=== PATIENT | female | born 1975 | race Caucasian/White ===

== ENCOUNTER 2016-12-10 10:04 | Emergency (ER) | payer BC, OTHER ==
[~2016-12-10] VITALS: Ht 165.1 cm; Wt 74.8 kg
--- NOTE | ~2016-12-10 | EKG ---
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
[~2016-12-10 10:04] MED LIST: METOCLOPRAMIDE10 MG PO; NORCO 5-325 TA1 EACH PO; ONDANSETRON HCL4 M2 PO; PRENATAL PO; SYNTHROID112 MCG PO; TYLENOL EX-STR500 M2; ZANTAC 150MG T150 M1 PO
[2016-12-10] MEDS ORDERED: WELLBUTRIN XL300 MG PO (10:12)
[2016-12-10] MEDS ORDERED: LEVOTHYROXIN0.125 M1 PO (10:12)
[2016-12-10] MEDS ORDERED: ZOLOFT50 MG PO (10:13)
[2016-12-10] MEDS ORDERED: VITAMIN D1000 UNI1 PO (10:13)
[2016-12-10] MEDS ORDERED: NORETHINDRONE PO (10:14)
[2016-12-10 10:22] LABS: HEMATOCRIT 38.8 % (37.0-47.0); HEMOGLOBIN 13.1 gm/dL (12.0-15.0); MANUAL DIFF YES; MCH 30.3 pg (26.0-34.0); MCHC 33.8 g/dL (28.0-37.0); MCV 89.5 fL (80.0-100.0); PLATELET COUNT 184 thou/uL (150-400); RBC 4.34 mil/uL (4.20-5.00); RDW 12.6 % (10.5-14.5); WBC 14.9 thou/uL (4.0-11.0)
[2016-12-10 10:31] LABS: ANION GAP 6 mmol/L (7-16); BUN 22 mg/dL (7-18); CALCIUM 8.6 mg/dL (8.5-10.1); CHLORIDE 104 mmol/L (98-107); CO2 27 mmol/L (21-32); CREATININE 0.9 mg/dL (0.6-1.0); GLUCOSE 164 mg/dL (74-106); POTASSIUM 4.2 mmol/L (3.5-5.1); SODIUM 137 mmol/L (136-145)
[2016-12-10 10:38] LABS: ALBUMIN 3.7 g/dL (3.4-5.0); ALKALINE PHOSPHATASE 80 U/L (46-116); SGOT 17 U/L (15-37); SGPT 21 U/L (30-65); TOTAL BILIRUBIN 0.4 mg/dL (<0.1-1.0); TOTAL PROTEIN 7.2 g/dL (6.4-8.2); TROPONIN-I < 0.04 ng/mL (<0.04-0.07)
[2016-12-10 10:49] LABS: ABSOLUTE NEUTROPHILS 13.7 thou/uL (1.4-8.2); ATYPICAL LYMPHS 1 %; TOTAL CELL COUNT 100
[2016-12-10 12:29] LABS: URINE BILIRUBIN NEGATIVE (Negative); URINE BLOOD NEGATIVE (Negative); URINE COLOR YELLOW; URINE GLUCOSE-RANDOM* NEGATIVE (Negative); URINE KETONES NEGATIVE (Negative); URINE NITRITE NEGATIVE (Negative); URINE PROTEIN (DIPSTICK) NEGATIVE (Negative); URINE UROBILINOGEN 0.2 E.U./dl (0.2-1.0)
[2016-12-10 12:41] LABS: CASTS None Seen /LPF (None Seen); CRYSTALS None Seen /LPF (None Seen); SQUAMOUS 4-10 Moderate /LPF (0-3)
[2016-12-10 12:42] LABS: BACTERIA 1-9 Few /HPF (None Seen); URINE RBC >20 Many /HPF (0-2); URINE WBC 0-5 Rare /HPF (0-5)
[2016-12-10] MEDS ORDERED: KEFLEX500 MG PO (13:21)
[2016-12-10 14:54] VITALS: BP 96/57
== END 2016-12-10 14:58 | disposition home or self-care (01) ==
LOC: ER 10:04
PROVIDERS: Physician Assistant
DX: N61.0 Mastitis without abscess (principal); E03.9 Hypothyroidism, unspecified; F32.9 Major depressive disorder, single episode, unspecified